=== PATIENT | male | born 1945 | race Caucasian/White ===

== ENCOUNTER 2022-12-21 04:30 | Day surgery (SDC) | payer OTHER ==
[2022-12-19 12:20] VITALS: BMI 27.2
[2022-12-21 08:29] VITALS: TEMP 98.4
[2022-12-21 09:08] VITALS: BP 139/76; PULSE 65; RESP 17
== END 2022-12-21 09:00 | disposition home or self-care (01) ==
LOC: JASU-ENDO 04:30
PROVIDERS: ATTEND Internal Medicine Gastroenterology
PROC: 0DBN8ZX Excision of Sigmoid Colon, Via Natural or Artificial Opening Endoscopic, Diagnostic (ICD-10-PCS; principal; 2022-12-21 08:00)
DX: Z12.11 Encounter for screening for malignant neoplasm of colon (principal); K63.5 Polyp of colon; K64.8 Other hemorrhoids; Z86.010 Personal history of colon polyps; Z83.71 Family history of colonic polyps
CPT/HCPCS: 88305-TC